=== PATIENT | male | born 1980 | race Caucasian/White ===

== ENCOUNTER → 2021-02-12 | Outpatient (CLI) | payer BC ==
[~2021-02-12] MED LIST: BAMLANIVIMAB (EUA) 700 MG, ETESEVIMAB (EUA) 1,400 MG in NS 50ML 50 ML IV ONE
[2021-02-12 10:20] VITALS: BP 132/83
[2021-02-12 11:45] VITALS: BP 138/71
[2021-02-12 12:40] VITALS: BP 125/76
== END | disposition home or self-care (01) ==
LOC: OPTX 10:36
DX: U07.1 COVID-19 (principal)
CPT/HCPCS: M0245; Q0245; Q0239